=== PATIENT | male | born 1935 | race Caucasian/White ===

== ENCOUNTER 2019-02-23 08:32 | Emergency (ER) | payer MEDICARE, OTHER ==
--- NOTE | 2019-02-23 10:01 | Emergency Department Record ---
History of Present Illness - General Chief Complaint: Fall Injury Stated Complaint: FALL/SHOULDER PAIN Time Seen by Provider: 02/23/19 09:45 Source: Patient Mode of Arrival: Ambulatory Limitations: No limitations - History of Present Illness Initial Comments: pt fell 4 days ago on an outstretched hand injuring his shoulder l. Complaint: Fall Onset/Timin -: Days(s) Fall From: Standing Fall Witnessed: Yes, by family, Yes, by bystander Place Fall Occurred: Other Loss of Consciousness: None Prolonged Down Time?: No Symptoms Prior to Fall: None Location - Extremities: Left: Shoulder Severity: Moderate Severity scale (1-10): 8 Quality: Aching Associated Symptoms: Denies - [place] Coma Scale Eye Response: (4) Open spontaneously Motor Response: (6) Obeys commands Verbal Response: (5) Oriented [place] Total: 15 - Related Data Home Medications Medication Instructions Recorded Confirmed Last Taken Aspirin [Aspirin EC] 81 mg PO DAILY 02/23/19 02/23/19 1 Day Ago ~02/22/19 Atorvastatin Calcium 40 mg PO DAILY 02/23/19 02/23/19 1 Day Ago ~02/22/19 Cholecalciferol (Vitamin D3) 1,000 unit PO 02/23/19 1 Day Ago [Vitamin D3] ~02/22/19 Clopidogrel Bisulfate [Clopidogrel] 75 mg PO DAILY 02/23/19 02/23/19 1 Day Ago ~02/22/19 Ezetimibe [Zetia] 10 mg PO DAILY 02/23/19 02/23/19 1 Day Ago ~02/22/19 Fish Oil/Dha/Epa [Fish Oil 1,200 1 each PO DAILY 02/23/19 02/23/19 1 Day Ago mg Fish Oil] ~02/22/19 Metoprolol Succinate 50 mg PO DAILY 02/23/19 02/23/19 1 Day Ago ~02/22/19 Multivitamin [Multiple Vitamins] 1 each PO DAILY 02/23/19 02/23/19 1 Day Ago ~02/22/19 Ranitidine HCl [Zantac] 300 mg PO DAILY 02/23/19 02/23/19 1 Day Ago ~02/22/19 Allergies Allergy/AdvReac Type Severity Reaction Status Date / Time No Known Drug Allergies Allergy Verified 02/23/19 08:44 Travel Screening - Travel/Exposure Within Last 30 Days Have you traveled within the last 30 days?: No - Travel/Exposure Within Last Year Have you traveled outside the [place] in the last year?: No - Additonal Travel Details Have you been exposed to anyone with a communicable illness?: No - Travel Symptoms Symptom Screening: None Review of Systems Reviewed: No additional complaints except as noted below Constitutional: Reports: As per HPI. Denies: Chills, Fever, Malaise, Night sweats, Weakness, Weight change Eyes: Reports: As per HPI. Denies: Eye discharge, Eye pain, Photophobia, Vision change ENT: Reports: As per HPI. Denies: Congestion, Dental pain, Ear pain, Epistaxis, Hearing loss, Throat pain Respiratory: Reports: As per HPI. Denies: Cough, Dyspnea, Hemoptysis, Stridor, Wheezes Cardiovascular: Reports: As per HPI. Denies: Arrhythmia, Chest pain, Dyspnea on exertion, Edema, Murmurs, Orthopnea, Palpitations, Paroxysmal nocturnal dyspnea, Rheumatic Fever, Syncope Endocrine: Reports: As per HPI. Denies: Fatigue, Heat or cold intolerance, Polydipsia, Polyuria Gastrointestinal: Reports: As per HPI. Denies: Abdominal pain, Constipation, Diarrhea, Hematemesis, Hematochezia, Melena, Nausea, Vomiting Genitourinary: Reports: As per HPI. Denies: Dysuria, Frequency, Hematuria, Incontinence, Retention, Testicular pain, Testicular mass, Urgency Musculoskeletal: Reports: As per HPI. Denies: Arthralgia, Back pain, Gout, Joint swelling, Myalgia, Neck pain Skin: Reports: As per HPI. Denies: Bruising, Change in color, Change in hair/nails, Lesions, Pruritus, Rash Neurological: Reports: As per HPI. Denies: Abnormal gait, Confusion, Headache, Numbness, Paresthesias, Seizure, Tingling, Tremors, Vertigo, Weakness Psychiatric: Reports: As per HPI. Denies: Anxiety, Auditory hallucinations, Depression, Homicidal thoughts, Suicidal thoughts, Visual hallucinations Hematological/Lymphatic: Reports: As per HPI. Denies: Anemia, Blood Clots, Easy bleeding, Easy bruising, Swollen glands Past Medical History - SOCIAL HISTORY Smoking Status: Never smoker Alcohol Use: None Drug Use: None - RESPIRATORY Hx Respiratory Disorders: No - CARDIOVASCULAR Hx Cardiac Cath: Yes (2 stents) - NEURO Hx Neuro Disorders: No - GI Hx GI Disorders: No - Hx Genitourinary Disorders: Yes Hx Prostate Problems: Yes - ENDOCRINE Hx Endocrine Disorders: No Hx Diabetes: No Hx Thyroid Disease: No - MUSCULOSKELETAL Hx Musculoskeletal Disorders: Yes Hx Arthritis: Yes - PSYCH Hx Psych Problems: No - HEMATOLOGY/ONCOLOGY Hx Hematology/Oncology Disorders: Yes Hx Cancer: Yes (Prostate) Family Medical History Any Significant Family History?: Yes Physical Exam - General General Appearance: Alert, Oriented x3, Cooperative, Mild distress - Head Head exam: Normal inspection - Eye Eye exam: Normal appearance, PERRL, EOMI Pupils: Normal accommodation - ENT ENT exam: Normal exam, Mucous membranes moist, Normal external ear exam, Normal orophraynx Ear exam: Normal external inspection. negative: External canal tenderness Nasal Exam: Normal inspection. negative: Discharge, Sinus tenderness Mouth exam: Normal external inspection, Tongue normal Teeth exam: Normal inspection. negative: Dental caries Throat exam: Normal inspection. negative: Tonsillar erythema, Tonsillar exudate - Neck Neck exam: Normal inspection, Full ROM. negative: Tenderness - Respiratory Respiratory exam: Normal lung sounds bilaterally. negative: Respiratory distress - Cardiovascular Cardiovascular Exam: Regular rate, Normal rhythm, Normal heart sounds - GI/Abdominal GI/Abdominal exam: Soft, Normal bowel sounds. negative: Tenderness - Rectal Rectal exam: Deferred - exam: Deferred - Extremities Extremities exam: Normal capillary refill, Tenderness (l shoulder). negative: Full ROM - Back Back exam: Reports: Normal inspection, Full ROM. Denies: Muscle spasm, Rash noted, Tenderness - Neurological Neurological exam: Alert, CN II-XII intact, Normal gait, Oriented X3 - Psychiatric Psychiatric exam: Normal affect, Normal mood - Skin Skin exam: Dry, Intact, Normal color, Warm Course Vital Signs 02/23/19 08:36 Temperature 98.2 F Pulse Rate 72 Respiratory 18 Rate Blood Pressure 150/66 Pulse Ox 96 Disposition Disposition: Discharge Clinical Impression: Greater trochanter fracture Qualifiers: Encounter type: initial encounter Fracture type: closed Fracture alignment: displaced Laterality: left Qualified Code(s): S72.112A - Displaced fracture of greater trochanter of left femur, initial encounter for closed fracture Rotator cuff injury Qualifiers: Encounter type: initial encounter Laterality: left Qualified Code(s): S46.002A - Unspecified injury of muscle(s) and tendon(s) of the rotator cuff of left shoulder, initial encounter Disposition: Home, Self-Care Condition: (1) Good Instructions: Fall Prevention for Older Adults (ED), Proximal Humerus Fracture (ED), Rotator Cuff Injury (ED) Additional Instructions: follow up with orthopedics. ice to shoulder. return sooner if worse. range of motion exercises 4 times a day. wear sling for 3 days only Quality - Quality Measures Quality Measures: N/A - Blood Pressure Screening Does Patient Have Any of the Following: Active Dx of HTN Blood Pressure Classification: Hypertensive Reading Systolic Measurement: 150 Diastolic Measurement: 66 Screening for High Blood Pressure: Patient Exclusion, Hx of HTN [G9744]
--- NOTE | 2019-02-23 10:11 | Emergency Department Record ---
History of Present Illness - General Chief Complaint: Fall Injury Stated Complaint: FALL/SHOULDER PAIN Time Seen by Provider: 02/23/19 09:45 Source: Patient Mode of Arrival: Ambulatory - History of Present Illness Onset/Timin -: Days(s) Fall From: Standing Fall Witnessed: Yes, by family, Yes, by bystander Place Fall Occurred: Other Loss of Consciousness: None Prolonged Down Time?: No Symptoms Prior to Fall: None Location - Extremities: Left: Shoulder Severity: Moderate Severity scale (1-10): 8 Quality: Aching Associated Symptoms: Denies - [place] Coma Scale Eye Response: (4) Open spontaneously Motor Response: (6) Obeys commands Verbal Response: (5) Oriented [place] Total: 15 - Related Data Home Medications Medication Instructions Recorded Confirmed Last Taken Aspirin [Aspirin EC] 81 mg PO DAILY 02/23/19 02/23/19 1 Day Ago ~02/22/19 Atorvastatin Calcium 40 mg PO DAILY 02/23/19 02/23/19 1 Day Ago ~02/22/19 Cholecalciferol (Vitamin D3) 1,000 unit PO 02/23/19 1 Day Ago [Vitamin D3] ~02/22/19 Clopidogrel Bisulfate [Clopidogrel] 75 mg PO DAILY 02/23/19 02/23/19 1 Day Ago ~02/22/19 Ezetimibe [Zetia] 10 mg PO DAILY 02/23/19 02/23/19 1 Day Ago ~02/22/19 Fish Oil/Dha/Epa [Fish Oil 1,200 1 each PO DAILY 02/23/19 02/23/19 1 Day Ago mg Fish Oil] ~02/22/19 Metoprolol Succinate 50 mg PO DAILY 02/23/19 02/23/19 1 Day Ago ~02/22/19 Multivitamin [Multiple Vitamins] 1 each PO DAILY 02/23/19 02/23/19 1 Day Ago ~02/22/19 Ranitidine HCl [Zantac] 300 mg PO DAILY 02/23/19 02/23/19 1 Day Ago ~02/22/19 Allergies Allergy/AdvReac Type Severity Reaction Status Date / Time No Known Drug Allergies Allergy Verified 02/23/19 08:44 Travel Screening - Travel/Exposure Within Last 30 Days Have you traveled within the last 30 days?: No - Travel/Exposure Within Last Year Have you traveled outside the [place] in the last year?: No - Additonal Travel Details Have you been exposed to anyone with a communicable illness?: No - Travel Symptoms Symptom Screening: None Review of Systems Constitutional: Reports: As per HPI. Denies: Chills, Fever, Malaise, Night sweats, Weakness, Weight change Eyes: Reports: As per HPI. Denies: Eye discharge, Eye pain, Photophobia, Vision change ENT: Reports: As per HPI. Denies: Congestion, Dental pain, Ear pain, Epistaxis, Hearing loss, Throat pain Respiratory: Reports: As per HPI. Denies: Cough, Dyspnea, Hemoptysis, Stridor, Wheezes Cardiovascular: Reports: As per HPI. Denies: Arrhythmia, Chest pain, Dyspnea on exertion, Edema, Murmurs, Orthopnea, Palpitations, Paroxysmal nocturnal dyspnea, Rheumatic Fever, Syncope Endocrine: Reports: As per HPI. Denies: Fatigue, Heat or cold intolerance, Polydipsia, Polyuria Gastrointestinal: Reports: As per HPI. Denies: Abdominal pain, Constipation, Diarrhea, Hematemesis, Hematochezia, Melena, Nausea, Vomiting Genitourinary: Reports: As per HPI. Denies: Dysuria, Frequency, Hematuria, Incontinence, Retention, Testicular pain, Testicular mass, Urgency Musculoskeletal: Reports: As per HPI. Denies: Arthralgia, Back pain, Gout, Joint swelling, Myalgia, Neck pain Skin: Reports: As per HPI. Denies: Bruising, Change in color, Change in hair/nails, Lesions, Pruritus, Rash Neurological: Reports: As per HPI. Denies: Abnormal gait, Confusion, Headache, Numbness, Paresthesias, Seizure, Tingling, Tremors, Vertigo, Weakness Psychiatric: Reports: As per HPI. Denies: Anxiety, Auditory hallucinations, Depression, Homicidal thoughts, Suicidal thoughts, Visual hallucinations Hematological/Lymphatic: Reports: As per HPI. Denies: Anemia, Blood Clots, Easy bleeding, Easy bruising, Swollen glands Past Medical History - SOCIAL HISTORY Smoking Status: Never smoker Alcohol Use: None Drug Use: None - RESPIRATORY Hx Respiratory Disorders: No - CARDIOVASCULAR Hx Cardiac Cath: Yes (2 stents) - NEURO Hx Neuro Disorders: No - GI Hx GI Disorders: No - Hx Genitourinary Disorders: Yes Hx Prostate Problems: Yes - ENDOCRINE Hx Endocrine Disorders: No Hx Diabetes: No Hx Thyroid Disease: No - MUSCULOSKELETAL Hx Musculoskeletal Disorders: Yes Hx Arthritis: Yes - PSYCH Hx Psych Problems: No - HEMATOLOGY/ONCOLOGY Hx Hematology/Oncology Disorders: Yes Hx Cancer: Yes (Prostate) Family Medical History Any Significant Family History?: Yes Physical Exam - General Limitations: No limitations Course Vital Signs 02/23/19 02/23/19 08:36 10:07 Temperature 98.2 F 98.2 F Pulse Rate 72 Pulse Rate [ 62 Pulse Ox Probe] Respiratory 18 18 Rate Blood Pressure 150/66 Blood Pressure 137/52 [Right Arm] Pulse Ox 96 96 Disposition Disposition: Discharge Clinical Impression: Greater trochanter fracture Qualifiers: Encounter type: initial encounter Fracture type: closed Fracture alignment: displaced Laterality: left Qualified Code(s): S72.112A - Displaced fracture of greater trochanter of left femur, initial encounter for closed fracture Rotator cuff injury Qualifiers: Encounter type: initial encounter Laterality: left Qualified Code(s): S46.002A - Unspecified injury of muscle(s) and tendon(s) of the rotator cuff of left shoulder, initial encounter Disposition: Home, Self-Care Condition: (1) Good Instructions: Rotator Cuff Injury (ED), Fall Prevention for Older Adults (ED), Proximal Humerus Fracture (ED) Additional Instructions: follow up with orthopedics. ice to shoulder. return sooner if worse. range of motion exercises 4 times a day. wear sling for 3 days only Referrals: [facility] [Provider Group] Johnnie Mcintosh [DOCTOR OF OSTEOPATH] - Forms: Patient Portal Access Quality - Quality Measures Quality Measures: N/A - Blood Pressure Screening Does Patient Have Any of the Following: Active Dx of HTN Blood Pressure Classification: Hypertensive Reading Systolic Measurement: 150 Diastolic Measurement: 66 Screening for High Blood Pressure: Patient Exclusion, Hx of HTN [G9744]
--- NOTE | 2019-02-24 08:54 | RADIOLOGY REPORT ---
EXAMINATION: Left shoulder 3 views. CLINICAL HISTORY: Pain with limited range of motion post fall. TECHNIQUE: Internal and external humerus rotation AP views of the left shoulder are obtained as well as a scapular Y view. COMPARISON: None. ENCOUNTER: Initial. FINDINGS: There is normal bone mineralization. There is somewhat rectangular calcific density noted adjacent to the superior margin of the greater tuberosity of the humerus with associated mild cortical irregularity. While this likely relates to calcific tendinosis, the possibility of superimposed avulsion-type fracture cannot be excluded. No other osseous evidence of fracture. There are mild degenerative changes of the acromioclavicular and glenohumeral joints. No periarticular erosion. No focal soft tissue abnormality. The thoracic aorta is tortuous and atherosclerotic. IMPRESSION: Rectangular calcific density noted adjacent to the superior margin of the greater tuberosity measuring 12 x 4 mm. 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 Otherwise, there is no osseous evidence of fracture. Mild degenerative changes. MTDD
== END 2019-02-23 10:24 | disposition home or self-care (01) ==
LOC: ER 08:32
DX: S72.112A Displaced fracture of greater trochanter of left femur, initial encounter for closed fracture (principal); S46.002A Unspecified injury of muscle(s) and tendon(s) of the rotator cuff of left shoulder, initial encounter; I10 Essential (primary) hypertension; W01.198A Fall on same level from slipping, tripping and stumbling with subsequent striking against other object, initial encounter; Y92.89 Other specified places as the place of occurrence of the external cause
CPT/HCPCS: 99283; 99284